=== PATIENT | female | born 1950 | race Caucasian/White ===

== ENCOUNTER 2016-12-26 19:39 | Emergency (ER) | payer MEDICARE, OTHER ==
[2016-12-26 20:13] VITALS: BP 187/89
--- NOTE | 2016-12-26 20:16 | EDM.PDOC ---
ED HPI GENERAL MEDICAL PROBLEM - General Chief Complaint: Cardiovascular Problem Stated Complaint: BP UP, HEART IS RACING, [id number] Time Seen by Provider: 12/26/16 19:50 Source of Information: Reports: Patient History Limitations: Reports: No Limitations - History of Present Illness INITIAL COMMENTS - FREE TEXT/NARRATIVE: chest pain since 7pm, tightness across mid chest, less after one regular aspirin at onset of pain. Prior hx htn, controlled. No prior chest pain or indigestion. No SOB or sweating with pain. Onset: Today Duration: Hour(s): Location: Reports: Chest Anterior Chest Pain Score (Numeric/FACES): 2 - Related Data Allergies Allergy/AdvReac Type Severity Reaction Status Date / Time amoxicillin [Amoxicillin] Allergy Rash Verified 02/25/15 06:10 clindamycin Allergy Itching Verified 02/25/15 06:04 Home Meds: Home Meds Benazepril HCl [Benazepril HCl] 2 tab PO DAILY 05/11/13 [History] Gabapentin [Gabapentin] 1 cap PO TID 05/11/13 [History] Calcium Carbonate/Vitamin D3 [Calcium 600 + Vit D 400 Tablet] 1 tab PO DAILY 05/11 [History] Past Medical History Cardiovascular History: Reports: Hypertension Other Cardiovascular History: HYPERLIPIDEMIA Other Musculoskeletal History: injections to right knee for arthritic pain about once a year - Past Surgical History Other HEENT Surgeries/Procedures: LEFT EAR SURGERY Social & Family History - Tobacco Use Smoking Status *Q: Never Smoker Second Hand Smoke Exposure: No - Caffeine Use Caffeine Use: Reports: Coffee, Soda - Alcohol Use Days Per Week of Alcohol Use: 1 Number of Drinks Per Day: 1 Total Drinks Per Week: 1 - Recreational Drug Use Recreational Drug Use: No ED ROS GENERAL - Review of Systems Review Of Systems: See Below Constitutional: Reports: No Symptoms HEENT: Reports: No Symptoms Respiratory: Reports: No Symptoms. Denies: Shortness of Breath Cardiovascular: Reports: Chest Pain (midsternal pressure, no radiation, onset wwhile sitting in chair after supper). Denies: Dyspnea on Exertion, Edema, Lightheadedness GI/Abdominal: Reports: No Symptoms Musculoskeletal: Reports: No Symptoms Skin: Reports: No Symptoms Neurological: Reports: No Symptoms Psychiatric: Reports: No Symptoms ED EXAM, GENERAL - Physical Exam Exam: See Below Exam Limited By: Other General Appearance: No Apparent Distress Eye Exam: Bilateral Eye: EOMI, PERRL Ears: Normal External Exam, Hearing Loss Nose: Normal Inspection Throat/Mouth: Normal Inspection Head: Atraumatic, Normocephalic Neck: Normal Inspection, Full Range of Motion. No: Lymphadenopathy (L), Lymphadenopathy (R) Respiratory/Chest: No Respiratory Distress, Lungs Clear, Normal Breath Sounds Cardiovascular: Normal Peripheral Pulses, Regular Rate, Rhythm, No Edema GI/Abdominal: Normal Bowel Sounds, Soft, Non-Tender Back Exam: Normal Inspection, Full Range of Motion Neurological: Alert, Oriented Psychiatric: Normal Affect Skin Exam: Warm, Dry, Intact, Normal Color EKG INTERPRETATION EKG Date: 12/27/16 Rhythm: NSR Course - Vital Signs Last Recorded V/S: Last Vital Signs Temp 96.7 F 12/26/16 19:46 Pulse 80 12/26/16 19:46 Resp 19 12/26/16 19:46 BP 187/89 H 12/26/16 19:46 Pulse Ox 98 12/26/16 19:46 - Orders/Labs/Meds Orders: Active Orders 24 hr Category Date Time Status EKG 12 Lead [EKG Documentation Completion] [RC] URGENT Care 12/26/16 20:13 Active EKG 12 Lead [EKG Documentation Completion] [RC] URGENT Care 12/27/16 00:05 Active Labs: Laboratory Tests 12/26/16 12/26/16 12/26/16 Range/Units 20:06 20:06 20:06 WBC 9.2 (5.0-10.0) 10^3/uL RBC 4.77 (4.2-5.4) 10^6/uL Hgb 14.5 (12.0-16.0) g/dL Hct 44.2 (37.0-47.0) % MCV 92.7 (80-100) fL MCH 30.4 (27.0-34.0) pg MCHC 32.8 L (33.0-35.0) g/dL Plt Count 250 (150-450) 10^3/uL Neut % (Auto) 64.4 (42.2-75.2) % Lymph % (Auto) 24.9 (20.5-50.1) % Rosebud % (Auto) 9.0 H (2-8) % Eos % (Auto) 1.5 (1.0-3.0) % Baso % (Auto) 0.2 (0.0-1.0) % Sodium 138 (135-145) mmol/L Potassium 3.7 (3.6-5.0) mmol/L Chloride 101 (101-111) mmol/L Carbon Dioxide 27.0 (21.0-31.0) mmol/L Anion Gap 13.7 BUN 20 H (7-18) mg/dL Creatinine 1.0 (0.6-1.3) mg/dL Est Cr Clr Drug Dosing 47.14 mL/min Estimated GFR (MDRD) 55 BUN/Creatinine Ratio 20.00 Glucose 125 H (74-105) mg/dL Calcium 9.2 (8.4-10.2) mg/dl Total Bilirubin 0.6 (0.2-1.0) mg/dL AST 116 H (10-42) IU/L ALT 64 H (10-60) IU/L Alkaline Phosphatase 93 (42-121) IU/L Creatine Kinase (26-174) IU/L Creatine Kinase Index (0-2.4) % CK-MB (CK-2) 4.90 H (0.4-4.7) ng/mL Troponin I < 0.02 (0.00-0.02) ng/ml Total Protein 7.2 (6.7-8.2) g/dl Albumin 4.2 (3.2-5.5) g/dl Globulin 3.0 Albumin/Globulin Ratio 1.40 Amylase 48 (28-100) U/L Lipase 25 (22-51) U/L 12/27/16 12/27/16 Range/Units 00:15 00:15 WBC (5.0-10.0) 10^3/uL RBC (4.2-5.4) 10^6/uL Hgb (12.0-16.0) g/dL Hct (37.0-47.0) % MCV (80-100) fL MCH (27.0-34.0) pg MCHC (33.0-35.0) g/dL Plt Count (150-450) 10^3/uL Neut % (Auto) (42.2-75.2) % Lymph % (Auto) (20.5-50.1) % Rosebud % (Auto) (2-8) % Eos % (Auto) (1.0-3.0) % Baso % (Auto) (0.0-1.0) % Sodium (135-145) mmol/L Potassium (3.6-5.0) mmol/L Chloride (101-111) mmol/L Carbon Dioxide (21.0-31.0) mmol/L Anion Gap BUN (7-18) mg/dL Creatinine (0.6-1.3) mg/dL Est Cr Clr Drug Dosing mL/min Estimated GFR (MDRD) BUN/Creatinine Ratio Glucose (74-105) mg/dL Calcium (8.4-10.2) mg/dl Total Bilirubin (0.2-1.0) mg/dL AST (10-42) IU/L ALT (10-60) IU/L Alkaline Phosphatase (42-121) IU/L Creatine Kinase 185 H (26-174) IU/L Creatine Kinase Index 2.2 (0-2.4) % CK-MB (CK-2) 4.10 (0.4-4.7) ng/mL Troponin I < 0.02 (0.00-0.02) ng/ml Total Protein (6.7-8.2) g/dl Albumin (3.2-5.5) g/dl Globulin Albumin/Globulin Ratio Amylase (28-100) U/L Lipase (22-51) U/L - Radiology Interpretation Free Text/Narrative:: CXR- no active disease - Re-Assessments/Exams Free Text/Narrative Re-Assessment/Exam: 12/27/16 00:57 No further episodes of chest pain, resting, VVS. Repeat EKG NSR. Follow up Troponin negative. Discussed need for follow up with PCP this week. urgent return if similar symptoms. Resume daily use of aspirin. Departure - Departure Time of Disposition: 00:54 Disposition: Home, Self-Care 01 Condition: Fair Clinical Impression: Chest pain Qualifiers: Chest pain type: other chest pain Qualified Code(s): R07.89 - Other chest pain Hypertensive heart disease Qualifiers: Heart failure presence: without heart failure Qualified Code(s): I11.9 - Hypertensive heart disease without heart failure Instructions: Heart Attack, [id number] Forms: ED Department Discharge Additional Instructions: Low fat bland diet Enteric aspirin 162 mg daily follow up in clinic for recheck this week Urgent follow up if recurrent chest pain, sweating, nausea, dizzy - My Orders Last 24 Hours: My Active Orders 12/26/16 20:13 EKG 12 Lead [EKG Documentation Completion] [RC] URGENT 12/27/16 00:05 EKG 12 Lead [EKG Documentation Completion] [RC] URGENT - Assessment/Plan Last 24 Hours: My Active Orders 12/26/16 20:13 EKG 12 Lead [EKG Documentation Completion] [RC] URGENT 12/27/16 00:05 EKG 12 Lead [EKG Documentation Completion] [RC] URGENT
[2016-12-26 20:38] LABS: CHLORIDE,CL 101 mmol/L (101-111); SODIUM,NA 138 mmol/L (135-145)
--- NOTE | 2016-12-28 15:29 | EKG ---
12/26/2016 - NATALIA GILLESPIE - EKG per my reading shows sinus rhythm at the rate of 68. This is an EKG from 12/26/2016, 7:58 p.m. MOD /[id number]
--- NOTE | 2016-12-28 15:34 | EKG ---
12/27/2016 - NATALIA GILLESPIE - EKG per my reading shows sinus rhythm at the rate of 63. No acute ST changes. This is an EKG from 12/27/2016, at 0032. MODL /[id number]
== END 2016-12-27 01:30 | disposition home or self-care (01) ==
LOC: DL.ED 19:39
DX: R07.89 Other chest pain (principal); I11.9 Hypertensive heart disease without heart failure; E78.5 Hyperlipidemia, unspecified; Z98.890 Other specified postprocedural states; Z79.899 Other long term (current) drug therapy; Z88.1 Allergy status to other antibiotic agents
CPT/HCPCS: 36415; 71010; 80053; 82150; 82550; 82553; 83690; 84484; 85025; 93005; 93010; 99284

== ENCOUNTER 2019-07-05 06:56 | Day surgery (SDC) | payer MEDICARE, OTHER ==
[~2019-07-05 06:56] MED LIST: Midazolam 1 MG/ML 2 ML SDV ONE; fentaNYL 100 MCG/2 ML SDV ONE
[2019-07-05] MEDS ORDERED: Midazolam 1 MG/ML 2 ML SDV IV ONE ×3 (06:57→08:07)
[2019-07-05] MEDS ORDERED: fentaNYL 100 MCG/2 ML SDV IV ONE ×3 (06:57→08:06)
[2019-07-05] MEDS ORDERED: Dextrose 5%-0.45% NaCl 1,000 ML IV SCH ×2 (07:45→08:15)
[2019-07-05] MEDS ORDERED: Sodium Chloride 0.9% 10 ML Syringe FLUSH PRN (08:01)
[2019-07-05 10:45] VITALS: BP 134/71; PULSE 62
--- NOTE | 2019-07-05 13:38 | OR ---
DATE: 07/05/2019 PROCEDURE: Esophagogastroduodenoscopy and multiple pinch biopsies. INSTRUMENT USED: [id number] Olympus video panendoscope. PREMEDICATIONS: No oral or topical anesthesia used. Fentanyl 100 mcg intravenous, Versed 2 mg intravenous, nasal O2 cannula. The procedure was done under pulse oximetry, BP recording, and monitoring tech. INDICATION: The patient with persistent regurgitation, dyspepsia unexplained and not responsive to medical measures, on PPI. Esophagogastroduodenoscopy is performed for detection of any active erosive lesions, Andino esophagus, and/or malignancy also under consideration, H pylori status to be determined, endoscopic hemostasis therapy if needed. PROCEDURE IN DETAIL: The scope was passed with ease. Adequate visualization of the esophagus was made proximal to distal areas. No upper esophageal lesions identified. No distal esophageal stricture. No uphill or downhill esophageal varices. No Aysha-Alfred tear. No evidence of erosive esophagitis by Blount criteria. No esophageal polyp or tumor mass identified. Z-line was seen at around 40 cm distal to the oral verge, configuration consistent with grade 1 by ZAP classification. No proximal gastric varices noted. Gastric fundus examination by retroflexion showed no polypoid lesions. No gastric ulcer, malignant mass, or vascular ectasia identified. Duodenal bulb showed no ulcer. Visualized second part of the duodenum was unremarkable. Multiple pinch biopsies were taken from the gastric antrum and proximal body, and sent for PyloriTek test for H pylori, and if negative in an hour, the tissue is to be sent for histopathology. No bleeding was noted from any of the visualized areas at the completion of examination. Photographs were taken of the duodenal bulb, gastric antrum, fundus, and distal esophagus. IMPRESSION: Normal study. The patient tolerated the procedure well. [facility] /[id number]
== END 2019-07-05 10:15 | disposition home or self-care (01) ==
LOC: DL.ENDO 06:56
PROVIDERS: ATTEND Internal Medicine Gastroenterology
DX: A04.8 Other specified bacterial intestinal infections (principal); I10 Essential (primary) hypertension; E78.5 Hyperlipidemia, unspecified; E66.09 Other obesity due to excess calories; H91.90 Unspecified hearing loss, unspecified ear; G47.33 Obstructive sleep apnea (adult) (pediatric); Z88.0 Allergy status to penicillin; Z88.1 Allergy status to other antibiotic agents; Z88.8 Allergy status to other drugs, medicaments and biological substances
CPT/HCPCS: 43239; 87077; J2250; J3010; J7042

== ENCOUNTER 2020-11-01 01:04 | Emergency (ER) | payer MEDICARE, OTHER ==
[2020-11-01] MEDS ORDERED: Ondansetron 4 MG/2 ML SDV IVPUSH ONE (02:21)
[2020-11-01] MEDS ORDERED: Ondansetron 4 MG Tab.DIS PO ONE (02:29)
[2020-11-01] MEDS ORDERED: Ondansetron 4 MG/2 ML SDV IM ONE (02:33)
[2020-11-01] MEDS ORDERED: Iopamidol 612 MG/ML 100 ML Bottle IVPUSH ONE (03:10)
[2020-11-01] MEDS ORDERED: fentaNYL 100 MCG/2 ML SDV IVPUSH ONE (04:18)
[2020-11-01] MEDS ORDERED: Sodium Chloride 0.9% 1,000 ML IV ONE (04:51)
[2020-11-01 04:59] VITALS: BP 139/62; PULSE 73
--- NOTE | 2020-11-01 05:17 | CT ---
PROCEDURE INFORMATION: Exam: CT Abdomen And Pelvis With Contrast Exam date and time: 11/01/2020 3:41 AM Age: 70 years old Clinical indication: Other: Wbc 13,500; Additional info: Abdominal pain TECHNIQUE: Imaging protocol: Computed tomography of the abdomen and pelvis with contrast. Radiation optimization: All CT scans at this facility use at least one of these dose optimization techniques: automated exposure control; mA and/or kV adjustment per patient size (includes targeted exams where dose is matched to clinical indication); or iterative reconstruction. Contrast material: [id number]; Contrast volume: 75 ml; Contrast route: INTRAVENOUS (IV); COMPARISON: CT Chest wo Cont, Chest wo Cont 12/04/2019 2:33 PM FINDINGS: Lungs: There is a 12.8 x 14.6 x 13.5 mm pulmonary nodularity present in the left lower lobe that appears stable today compared with 12/04/2019. Mediastinal space: There is a small hiatal hernia present. Liver: A 12.8 mm hypoattenuation cystic lesions seen in the anterior segment right hepatic lobe compatible with a simple cyst. Gallbladder and bile ducts: Normal. No calcified stones. No ductal dilation. Pancreas: Normal. No ductal dilation. Spleen: Normal. No splenomegaly. Adrenal glands: Normal. No mass. Kidneys and ureters: There is a 5.2 mm nonobstructing lower pole calculus seen within the left kidney. There is a mildly irregular partially calcified lesion seen in the lower pole of the right kidney anteriorly that may represent a partially calcified hemorrhagic cyst. Stomach and bowel: Diverticula are present on the descending and sigmoid colon. Diffuse hazy in strandy opacities are seen surrounding the proximal sigmoid colon and there is bowel wall thickening of the proximal sigmoid colon seen, findings compatible with diverticulitis. There is mild thickening of the adjacent peritoneum. Appendix: No evidence of appendicitis. Intraperitoneal space: Unremarkable. No free air. No significant fluid collection. Vasculature: Unremarkable. No abdominal aortic aneurysm. Lymph nodes: Unremarkable. No enlarged lymph nodes. Urinary bladder: Unremarkable as visualized. Reproductive: Unremarkable as visualized. Bones/joints: Unremarkable. No acute fracture. Soft tissues: Unremarkable. IMPRESSION: 1. Diverticulosis of the descending and sigmoid colon. Inflammatory changes and bowel wall thickening are seen within the proximal sigmoid colon compatible with diverticulitis. 2. Nonobstructing 5 2 mm left renal calculus. Mildly irregular calcific density in the lower pole of the right kidney may represent a partially calcified hemorrhagic cyst. No further workup is needed. 3. Probable benign 12.8 mm cyst in the anterior segment the right hepatic lobe. 4. Small hiatal hernia 5. Stable pulmonary nodularity in the left lower lobe measuring up to 14.6 mm compared with 12/04/2019. No further workup is needed. COMMENTS: Consistent with the [employer]'s Incidental Findings Committee white paper (J Am Cleo Radiol 2018): Any incidental renal lesion less than 1 cm or classified as too small to characterize, or any incidental cystic renal lesion characterized as simple-appearing, is likely benign. No follow-up imaging is recommended for these lesions per consensus recommendations based on imaging criteria.
[2020-11-01] MEDS ORDERED: metroNIDAZOLE 250 MG Tab PO ONE (06:06)
[2020-11-01] MEDS ORDERED: Acetaminophen/HYDROcodone 325-10 MG Tab PO ONE (06:06)
[2020-11-01] MEDS ORDERED: Ciprofloxacin 500 MG Tab PO ONE (06:06)
--- NOTE | 2020-11-01 06:08 | EDM.PDOC ---
ED HPI GENERAL MEDICAL PROBLEM - General Chief Complaint: Abdominal Pain Stated Complaint: STOMACH PAIN Time Seen by Provider: 11/01/20 01:10 Source of Information: Reports: Patient, RN History Limitations: Reports: No Limitations - History of Present Illness INITIAL COMMENTS - FREE TEXT/NARRATIVE: C/o low abdominal pain starting early ana. No vomiting, some nausea. Chills, no fever. No diarrhea or constipation. Denied urinary sx. Recent knee replacement 2 weeks prior. .pelvic area Pain Score (Numeric/FACES): 3 - Related Data Allergies Allergy/AdvReac Type Severity Reaction Status Date / Time amlodipine Allergy Other Verified 11/01/20 01:26 amoxicillin [Amoxicillin] Allergy Rash Verified 11/01/20 01:26 clindamycin Allergy Itching Verified 11/01/20 01:26 lincomycin Allergy Cannot Verified 11/01/20 01:26 Remember Home Meds: Home Meds Benazepril HCl 20 mg PO DAILY 05/11/13 [History] Gabapentin 100 mg PO DAILY 05/11/13 [History] Calcium Carbonate/Vitamin D3 [Calcium 600 + Vit D 400 Tablet] 1 tab PO DAILY 02/25/15 [History] Aspirin [Ecotrin EC] 81 mg PO DAILY 07/04/19 [History] Hydrocortisone [Hydrocortisone 2.5% Crm] 1 squirt TOP BID 07/04/19 [History] Mupirocin Oint [Bactroban Oint] 1 squirt TOP ASDIRECTED 07/04/19 [History] Past Medical History HEENT History: Reports: Allergic Rhinitis, Hard of Hearing, Sinusitis Cardiovascular History: Reports: High Cholesterol, Hypertension Other Cardiovascular History: HYPERLIPIDEMIA Respiratory History: Reports: Sleep Apnea Other Respiratory History: Uses a c-pap machine Gastrointestinal History: Reports: None Genitourinary History: Reports: None 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 Mastoidectomy Cardiovascular Surgical History: Reports: None Respiratory Surgical History: Reports: None GI Surgical History: Reports: Colonoscopy Female Surgical History: Reports: Breast Biopsy Neurological Surgical History: Reports: None Musculoskeletal Surgical History: Reports: None, Other (See Below) Other Musculoskeletal Surgeries/Procedures:: Total Rt. knee replacement october 05, 2020 Social & Family History - Family History Family Medical History: No Pertinent Family History - Tobacco Use Tobacco Use Status *Q: Never Tobacco User Second Hand Smoke Exposure: No - Caffeine Use Caffeine Use: Reports: Coffee Caffeine Use Comment: 8 OZ DAILY - Recreational Drug Use Recreational Drug Use: No ED ROS GENERAL - Review of Systems Review Of Systems: Comprehensive ROS is negative, except as noted in HPI. ED EXAM, GI/ABD - Physical Exam Exam: See Below Exam Limited By: No Limitations General Appearance: Alert, Anxious, Mild Distress Eyes: Bilateral: EOMI Ears: Normal External Exam, Hearing Loss (hearing aid left) Nose: Normal Inspection Throat/Mouth: Normal Inspection Head: Atraumatic, Normocephalic Neck: Normal Inspection Respiratory/Chest: No Respiratory Distress, Lungs Clear, Normal Breath Sounds, Chest Non-Tender Cardiovascular: Normal Peripheral Pulses, Regular Rate, Rhythm GI/Abdominal Exam: Normal Bowel Sounds, Soft, No Distention, Tender. No: Rebound, Hepatomegaly, Splenomegaly Back Exam: Normal Inspection, Full Range of Motion Extremities: Other (s/p right knee repair. Incision CDI healinng) Neurological: Alert, Oriented, Normal Cognition Psychiatric: Anxious, Flat Affect Skin Exam: Warm, Dry, Intact, Normal Color, Wound/Incision (right knee CDI) Course - Vital Signs Last Recorded V/S: Last Vital Signs Temp 97.5 F 11/01/20 04:57 Pulse 73 11/01/20 04:57 Resp 16 11/01/20 04:57 BP 139/62 11/01/20 04:57 Pulse Ox 97 11/01/20 04:57 - Orders/Labs/Meds Labs: Laboratory Tests 11/01/20 11/01/20 11/01/20 Range/Units 01:15 02:20 02:20 WBC 13.5 H (5.0-10.0) 10^3/uL RBC 3.75 L (4.2-5.4) 10^6/uL Hgb 11.1 L D (12.0-16.0) g/dL Hct 34.6 L (37.0-47.0) % MCV 92.3 (80-100) fL MCH 29.6 (27.0-34.0) pg MCHC 32.1 L (33.0-35.0) g/dL Plt Count 352 D (150-450) 10^3/uL Neut % (Auto) 80.5 H (42.2-75.2) % Lymph % (Auto) 9.2 L (20.5-50.1) % [facility] % (Auto) 9.1 H (2-8) % Eos % (Auto) 1.0 (1.0-3.0) % Baso % (Auto) 0.2 (0.0-1.0) % Sodium 139 (136-145) mmol/L Potassium 4.0 (3.5-5.1) mmol/L Chloride 101 (98-107) mmol/L Carbon Dioxide 27 (21-32) mmol/L Anion Gap 15.0 H (7-13) mEq/L BUN 24 H (7-18) mg/dL Creatinine 1.03 H (0.55-1.02) mg/dL Est Cr Clr Drug Dosing 41.44 mL/min Estimated GFR (MDRD) 53 BUN/Creatinine Ratio 23.3 (No establ ref range) Glucose 114 H (70-99) mg/dL Lactic Acid (0.4-2.0) mmol/L Calcium 8.5 (8.5-10.1) mg/dL Total Bilirubin 0.5 (0.2-1.0) mg/dL AST 14 L (15-37) U/L ALT 22 (14-59) U/L Alkaline Phosphatase 89 (46-116) U/L Total Protein 6.6 (6.4-8.2) g/dL Albumin 3.2 L (3.4-5.0) g/dL Globulin 3.4 Albumin/Globulin Ratio 0.94 Amylase 39 (25-115) U/L Lipase 116 (73-393) U/L Urine Color Yellow (YELLOW) Urine Appearance Clear (CLEAR) Urine pH 7.0 (5.0-9.0) Ur Specific Rainbow 1.025 (1.005-1.030) Urine Protein Negative (NEGATIVE) Urine Glucose (UA) Negative (NEGATIVE) Urine Ketones Negative (NEGATIVE) Urine Occult Blood Trace-intact H (NEGATIVE) Urine Nitrite Negative (NEGATIVE) Urine Bilirubin Negative (NEGATIVE) Urine Urobilinogen 0.2 (0.2-1.0) mg/dL Ur Leukocyte Esterase Negative (NEGATIVE) Urine RBC Not seen (0-5) /HPF Urine WBC 0-5 (0-5/HPF) /HPF Ur Epithelial Cells Moderate H (NOT SEEN) /HPF Urine Bacteria Moderate H (0-FEW/HPF) /HPF 11/01/20 Range/Units 02:20 WBC (5.0-10.0) 10^3/uL RBC (4.2-5.4) 10^6/uL Hgb (12.0-16.0) g/dL Hct (37.0-47.0) % MCV (80-100) fL MCH (27.0-34.0) pg MCHC (33.0-35.0) g/dL Plt Count (150-450) 10^3/uL Neut % (Auto) (42.2-75.2) % Lymph % (Auto) (20.5-50.1) % [facility] % (Auto) (2-8) % Eos % (Auto) (1.0-3.0) % Baso % (Auto) (0.0-1.0) % Sodium (136-145) mmol/L Potassium (3.5-5.1) mmol/L Chloride (98-107) mmol/L Carbon Dioxide (21-32) mmol/L Anion Gap (7-13) mEq/L BUN (7-18) mg/dL Creatinine (0.55-1.02) mg/dL Est Cr Clr Drug Dosing mL/min Estimated GFR (MDRD) BUN/Creatinine Ratio (No establ ref range) Glucose (70-99) mg/dL Lactic Acid 0.7 (0.4-2.0) mmol/L Calcium (8.5-10.1) mg/dL Total Bilirubin (0.2-1.0) mg/dL AST (15-37) U/L ALT (14-59) U/L Alkaline Phosphatase (46-116) U/L Total Protein (6.4-8.2) g/dL Albumin (3.4-5.0) g/dL Globulin Albumin/Globulin Ratio Amylase (25-115) U/L Lipase (73-393) U/L Urine Color (YELLOW) Urine Appearance (CLEAR) Urine pH (5.0-9.0) Ur Specific Rainbow (1.005-1.030) Urine Protein (NEGATIVE) Urine Glucose (UA) (NEGATIVE) Urine Ketones (NEGATIVE) Urine Occult Blood (NEGATIVE) Urine Nitrite (NEGATIVE) Urine Bilirubin (NEGATIVE) Urine Urobilinogen (0.2-1.0) mg/dL Ur Leukocyte Esterase (NEGATIVE) Urine RBC (0-5) /HPF Urine WBC (0-5/HPF) /HPF Ur Epithelial Cells (NOT SEEN) /HPF Urine Bacteria (0-FEW/HPF) /HPF Meds: Medications Discontinued Medications Generic Name Dose Route Start Last Admin Trade Name Freq PRN Reason Stop Dose Admin Hydrocodone Bitart/Acetaminophen 1 tab 11/01/20 06:06 11/01/20 06:16 Acetaminophen/Hydrocodone 325-10 Mg Tab PO 11/01/20 06:07 1 tab ONETIME ONE Administration Ciprofloxacin 500 mg 11/01/20 06:06 11/01/20 06:17 Ciprofloxacin 500 Mg Tab PO 11/01/20 06:07 500 mg ONETIME ONE Administration Fentanyl 25 mcg 11/01/20 04:18 11/01/20 04:39 Fentanyl 100 Mcg/2 Ml Sdv IVPUSH 11/01/20 04:19 25 mcg ONETIME ONE Administration Sodium Chloride 1,000 mls @ 999 mls/hr 11/01/20 04:51 11/01/20 05:25 Normal Saline IV 11/01/20 05:51 100 mls/hr .BOLUS ONE Infusion Iopamidol 100 ml 11/01/20 03:10 11/01/20 03:30 Iopamidol 612 Mg/Ml 100 Ml Bottle IVPUSH 11/01/20 03:11 100 ml ONETIME ONE Administration Metoclopramide HCl 10 mg 11/01/20 06:11 11/01/20 06:14 Metoclopramide 10 Mg/2 Ml Sdv IVPUSH 11/01/20 06:12 10 mg ONETIME ONE Administration Metronidazole 500 mg 11/01/20 06:06 11/01/20 06:17 Metronidazole 250 Mg Tab PO 11/01/20 06:07 500 mg ONETIME ONE Administration Ondansetron HCl 4 mg 11/01/20 02:21 11/01/20 02:35 Ondansetron 4 Mg/2 Ml Sdv IVPUSH 11/01/20 02:22 Not Given ONETIME ONE Ondansetron HCl 4 mg 11/01/20 02:29 11/01/20 02:35 Ondansetron 4 Mg Tab.Dis PO 11/01/20 02:30 Not Given ONETIME ONE Ondansetron HCl 4 mg 11/01/20 02:33 11/01/20 02:35 Ondansetron 4 Mg/2 Ml Sdv IM 11/01/20 02:34 4 mg ONETIME ONE Administration Departure - Departure Time of Disposition: 06:04 Disposition: Home, Self-Care 01 Condition: Good Clinical Impression: Diverticula of colon Abdominal pain Qualifiers: Abdominal location: generalized Qualified Code(s): R10.84 - Generalized abdominal pain - Discharge Information *PRESCRIPTION DRUG MONITORING PROGRAM REVIEWED*: No *COPY OF PRESCRIPTION DRUG MONITORING REPORT IN PATIENT JOHNNY: No Instructions: Diverticulitis, [id number] Forms: ED Department Discharge Additional Instructions: fluids light diet small meals more frequently cipro 500mg one twice daily for 10 days flagyl 500mg one three times daily hydrocodone 5/325 one every 6 hours as needed for pain zofran 4mg ODT every 4 hours as needed for nausea Sepsis Event Note (ED) - Evaluation Sepsis Screening Result: No Definite Risk
[2020-11-01] MEDS ORDERED: Metoclopramide 10 MG/2 ML SDV IVPUSH ONE (06:11)
== END 2020-11-01 07:34 | disposition home or self-care (01) ==
LOC: DL.ED 01:04
DX: K57.32 Diverticulitis of large intestine without perforation or abscess without bleeding (principal); E78.00 Pure hypercholesterolemia, unspecified; I10 Essential (primary) hypertension; Z88.0 Allergy status to penicillin; Z88.1 Allergy status to other antibiotic agents; Z79.82 Long term (current) use of aspirin; Z79.899 Other long term (current) drug therapy
CPT/HCPCS: 36415; 74177; 80053; 81001; 82150; 83605; 83690; 85025; 96372; 96374; 96375; 99284; A9270; J2405; J2765; J3010; J7030; Q9967

== ENCOUNTER 2024-02-07 07:19 | Day surgery (SDC) | payer MEDICARE, OTHER ==
[2024-02-07] MEDS ORDERED: Dexamethasone 4 MG/ML SDV IV ONE (07:20)
[2024-02-07] MEDS ORDERED: Midazolam 1 MG/ML 2 ML SDV IV ONE (07:20)
[2024-02-07] MEDS ORDERED: Sodium Chloride 0.9% 10 ML Syringe IV ONE (07:20)
[2024-02-07] MEDS ORDERED: Acetaminophen 325 MG Tab PO PRN (07:30)
[2024-02-07] MEDS ORDERED: Acetaminophen/Codeine 300-30 MG Tab PO PRN (07:30)
[2024-02-07] MEDS ORDERED: Ondansetron 4 MG/2 ML SDV IVPUSH PRN (07:30)
[2024-02-07] MEDS: Proparacaine 0.5% Ophth Soln 15 ML Bottle EYELF ONE ×2 (07:54→08:45)
[2024-02-07] MEDS: Povidone-Iodine 5% Sterile Ophth Soln 30 ML Bottle EYELF ONE ×2 (07:55→08:47)
[2024-02-07] MEDS: Moxifloxacin 0.5% Ophth Soln 3 ML Bottle EYELF ONE (07:55)
[2024-02-07] MEDS: Tropicamide 1% Ophth Soln 15 ML Bottle EYELF ONE (07:56)
[2024-02-07] MEDS: Phenylephrine 10% Ophth Soln 5 ML Bot EYELF ONE (07:57)
[2024-02-07] MEDS: Timolol Maleate 0.5% Ophth Soln 5 ML Bottle EYELF ONE (07:58)
[2024-02-07] MEDS: Cataract Ophth Solution EYELF ONE (07:58)
[2024-02-07] MEDS: Sodium Chloride 0.9% 10 ML Syringe FLUSH PRN (08:00)
[2024-02-07] MEDS: Apraclonidine 0.5% Ophth Soln 5 ML Bot EYELF ONE (08:47)
[2024-02-07] MEDS: Diclofenac Sodium 0.1% Ophth Soln 5 ML Bottle EYELF ONE (08:47)
[2024-02-07] MEDS: Dexamethasone/Neomycin/Polymyxin B Ophth Oint 3.5 GM Tube EYELF ONE (08:49)
[2024-02-07] MEDS: Lidocaine 1% 30 ML SDV ONE (08:50)
[2024-02-07] MEDS: Vancomycin 500 MG SDV EYELF ONE (08:51)
[2024-02-07 11:06] VITALS: PULSE 62
[2024-02-07 11:10] VITALS: BP 126/68
== END 2024-02-07 09:37 | disposition home or self-care (01) ==
LOC: DL.SDS 07:19
PROVIDERS: ATTEND Ophthalmology
DX: H25.812 Combined forms of age-related cataract, left eye (principal); I10 Essential (primary) hypertension; Z88.1 Allergy status to other antibiotic agents; Z88.8 Allergy status to other drugs, medicaments and biological substances
CPT/HCPCS: A9270-GY; J1100; J2250; J3370; J3490

== ENCOUNTER 2024-02-21 07:18 | Day surgery (SDC) | payer MEDICARE, OTHER ==
[2024-02-21] MEDS ORDERED: Sodium Chloride 0.9% 10 ML Syringe IV ONE (07:19)
[2024-02-21] MEDS ORDERED: Dexamethasone 4 MG/ML SDV IV ONE (07:19)
[2024-02-21] MEDS ORDERED: Midazolam 1 MG/ML 2 ML SDV IV ONE (07:19)
[2024-02-21] MEDS ORDERED: Acetaminophen/Codeine 300-30 MG Tab PO PRN (07:30)
[2024-02-21] MEDS ORDERED: Acetaminophen 325 MG Tab PO PRN (07:30)
[2024-02-21] MEDS ORDERED: Ondansetron 4 MG/2 ML SDV IVPUSH PRN (07:30)
[2024-02-21] MEDS: Sodium Chloride 0.9% 10 ML Syringe FLUSH PRN (07:42)
[2024-02-21] MEDS: Proparacaine 0.5% Ophth Soln 15 ML Bottle EYERT ONE ×2 (07:51→09:11)
[2024-02-21] MEDS: Moxifloxacin 0.5% Ophth Soln 3 ML Bottle EYERT ONE (07:52)
[2024-02-21] MEDS: Povidone-Iodine 5% Sterile Ophth Soln 30 ML Bottle EYERT ONE ×2 (07:53→09:11)
[2024-02-21] MEDS: Tropicamide 1% Ophth Soln 15 ML Bottle EYERT ONE (07:54)
[2024-02-21] MEDS: Phenylephrine 10% Ophth Soln 5 ML Bot EYERT ONE (07:54)
[2024-02-21] MEDS: Timolol Maleate 0.5% Ophth Soln 5 ML Bottle EYERT ONE (07:55)
[2024-02-21] MEDS: Cataract Ophth Solution EYERT ONE (07:55)
[2024-02-21] MEDS: Dexamethasone/Neomycin/Polymyxin B Ophth Oint 3.5 GM Tube EYERT ONE (09:11)
[2024-02-21] MEDS: Apraclonidine 0.5% Ophth Soln 5 ML Bot EYERT ONE (09:11)
[2024-02-21] MEDS: Diclofenac Sodium 0.1% Ophth Soln 5 ML Bottle EYERT ONE (09:11)
[2024-02-21] MEDS: Lidocaine 1% 30 ML SDV ONE (09:22)
[2024-02-21] MEDS: VANCOmycin 500 MG SDV EYERT ONE (09:22)
[2024-02-21 10:01] VITALS: BP 130/75; PULSE 67
== END 2024-02-21 10:00 | disposition home or self-care (01) ==
LOC: DL.SDS 07:18
PROVIDERS: ATTEND Ophthalmology
DX: H25.811 Combined forms of age-related cataract, right eye (principal)
CPT/HCPCS: 66982; A9270; J3370; J1100; J2250; J3490